=== PATIENT | female | born 1965 | race Caucasian/White ===

== ENCOUNTER 2021-09-15 18:50 | Inpatient (IN) | payer OTHER ==
[2021-09-15] MEDS ORDERED: Acetaminophen 325 MG TAB PO PRN (20:07)
[2021-09-15] MEDS ORDERED: Acetaminophen 650 MG Suppository PR PRN (20:07)
[2021-09-15] MEDS ORDERED: HYDROcodone/Acetaminophen 5/325 mg Tablet PO PRN ×2 (20:09)
[2021-09-15 20:10] VITALS: BMI 37.5
[2021-09-15] MEDS ORDERED: Calcium Carbonate 500 MG ChewTAB PO PRN (20:10)
[2021-09-15] MEDS ORDERED: Ondansetron ODT 4 MG TAB PO PRN ×2 (20:10→21:37)
[2021-09-15] MEDS ORDERED: Bisacodyl 10 MG SUPP PR PRN (21:33)
[2021-09-15] MEDS ORDERED: Cyclobenzaprine 10 MG TAB PO PRN (21:37)
[2021-09-15] MEDS ORDERED: Enoxaparin Sodium 40 MG/0.4 ML SYRINGE SC SCH (22:00)
[2021-09-15] MEDS ORDERED: Gabapentin 100 MG CAP PO SCH (22:30)
[2021-09-15] MEDS ORDERED: Famotidine 20 MG TAB PO SCH (22:30)
[2021-09-15] MEDS: traMADol HCl 50 MG TAB PO SCH (23:27)
[2021-09-15] MEDS: Acetaminophen 500 MG TAB PO SCH (23:27)
[2021-09-16] MEDS: Acetaminophen 500 MG TAB PO SCH ×4 (05:54→23:58)
[2021-09-16] MEDS: traMADol HCl 50 MG TAB PO SCH ×4 (05:55→23:59)
[2021-09-16] MEDS: Enoxaparin Sodium 40 MG/0.4 ML SYRINGE SC SCH (09:50)
[2021-09-16] MEDS: Famotidine 20 MG TAB PO SCH ×2 (09:50→21:16)
[2021-09-16] MEDS: Gabapentin 100 MG CAP PO SCH ×3 (09:52→21:17)
[2021-09-17] MEDS: Acetaminophen 500 MG TAB PO SCH ×3 (05:47→17:17)
[2021-09-17] MEDS: traMADol HCl 50 MG TAB PO SCH ×3 (05:48→17:18)
[2021-09-17] MEDS: Famotidine 20 MG TAB PO SCH ×2 (09:08→21:16)
[2021-09-17] MEDS: Gabapentin 100 MG CAP PO SCH ×3 (09:09→21:16)
[2021-09-17] MEDS: Enoxaparin Sodium 40 MG/0.4 ML SYRINGE SC SCH (09:09)
[2021-09-18] MEDS: Acetaminophen 500 MG TAB PO SCH ×5 (00:23→23:40)
[2021-09-18] MEDS: traMADol HCl 50 MG TAB PO SCH ×5 (00:23→23:41)
[2021-09-18] MEDS: Famotidine 20 MG TAB PO SCH ×2 (08:17→21:17)
[2021-09-18] MEDS: Enoxaparin Sodium 40 MG/0.4 ML SYRINGE SC SCH (08:17)
[2021-09-18] MEDS: Gabapentin 100 MG CAP PO SCH ×3 (08:17→21:17)
[2021-09-18] MEDS: Bisacodyl 5 MG TAB PO PRN (08:18)
[2021-09-18] MEDS: Senokot S 8.6-50 MG TAB PO PRN (21:17)
[2021-09-19] MEDS: Acetaminophen 500 MG TAB PO SCH ×3 (05:47→17:44)
[2021-09-19] MEDS: traMADol HCl 50 MG TAB PO SCH ×3 (05:48→17:42)
[2021-09-19] MEDS: Famotidine 20 MG TAB PO SCH ×2 (09:24→21:49)
[2021-09-19] MEDS: Gabapentin 100 MG CAP PO SCH ×3 (09:24→21:49)
[2021-09-19] MEDS: Enoxaparin Sodium 40 MG/0.4 ML SYRINGE SC SCH (09:24)
[2021-09-19] MEDS: Bisacodyl 5 MG TAB PO PRN (09:25)
[2021-09-19] MEDS: Senokot S 8.6-50 MG TAB PO PRN (21:54)
[2021-09-20] MEDS: Acetaminophen 500 MG TAB PO SCH ×4 (00:10→17:25)
[2021-09-20] MEDS: traMADol HCl 50 MG TAB PO SCH ×4 (00:11→17:24)
[2021-09-20] MEDS: Enoxaparin Sodium 40 MG/0.4 ML SYRINGE SC SCH (08:54)
[2021-09-20] MEDS: Gabapentin 100 MG CAP PO SCH ×3 (08:54→21:50)
[2021-09-20] MEDS: Bisacodyl 5 MG TAB PO PRN (08:55)
[2021-09-20] MEDS: Famotidine 20 MG TAB PO SCH ×2 (08:56→21:50)
[2021-09-20] MEDS: Polyethylene Glycol 3350 17 GM Packet PO SCH (08:57)
[2021-09-20] MEDS ORDERED: Triple Antibiotic Oint 1 GM Packet TOP SCH (11:45)
[2021-09-20] MEDS: Triple Antibiotic Oint 1 GM Packet TOP SCH (21:52)
[2021-09-21] MEDS: Senokot S 8.6-50 MG TAB PO PRN ×2 (00:21→21:50)
[2021-09-21] MEDS: traMADol HCl 50 MG TAB PO SCH ×4 (00:22→17:37)
[2021-09-21] MEDS: Acetaminophen 500 MG TAB PO SCH ×4 (00:22→17:36)
[2021-09-21] MEDS: Famotidine 20 MG TAB PO SCH ×2 (10:11→21:39)
[2021-09-21] MEDS: Gabapentin 100 MG CAP PO SCH ×3 (10:11→21:39)
[2021-09-21] MEDS: Bisacodyl 5 MG TAB PO PRN (10:11)
[2021-09-21] MEDS: Triple Antibiotic Oint 1 GM Packet TOP SCH ×2 (10:12→21:41)
[2021-09-21] MEDS: Polyethylene Glycol 3350 17 GM Packet PO SCH (10:12)
[2021-09-21] MEDS: Enoxaparin Sodium 40 MG/0.4 ML SYRINGE SC SCH (10:12)
[2021-09-22] MEDS: Acetaminophen 500 MG TAB PO SCH ×5 (00:11→23:24)
[2021-09-22] MEDS: traMADol HCl 50 MG TAB PO SCH ×5 (00:12→23:24)
[2021-09-22] MEDS: Gabapentin 100 MG CAP PO SCH ×3 (08:22→22:43)
[2021-09-22] MEDS: Famotidine 20 MG TAB PO SCH ×2 (08:22→22:43)
[2021-09-22] MEDS: Enoxaparin Sodium 40 MG/0.4 ML SYRINGE SC SCH (08:23)
[2021-09-22] MEDS: Triple Antibiotic Oint 1 GM Packet TOP SCH ×2 (08:24→22:45)
[2021-09-22] MEDS: Polyethylene Glycol 3350 17 GM Packet PO SCH (09:37)
[2021-09-22] MEDS: Senokot S 8.6-50 MG TAB PO PRN (22:43)
[2021-09-23] MEDS: Acetaminophen 500 MG TAB PO SCH ×4 (05:55→23:26)
[2021-09-23] MEDS: traMADol HCl 50 MG TAB PO SCH ×4 (05:56→23:26)
[2021-09-23] MEDS: Bisacodyl 5 MG TAB PO PRN (08:29)
[2021-09-23] MEDS: Triple Antibiotic Oint 1 GM Packet TOP SCH ×2 (08:29→21:01)
[2021-09-23] MEDS: Famotidine 20 MG TAB PO SCH ×2 (08:29→20:59)
[2021-09-23] MEDS: Polyethylene Glycol 3350 17 GM Packet PO SCH (08:29)
[2021-09-23] MEDS: Gabapentin 100 MG CAP PO SCH ×3 (08:30→21:00)
[2021-09-23] MEDS: Enoxaparin Sodium 40 MG/0.4 ML SYRINGE SC SCH (08:30)
[2021-09-23 23:14] LABS: SARS-CoV-2 PCR by NAA Not Detected (NotDetected)
[2021-09-24] MEDS: Acetaminophen 500 MG TAB PO SCH ×4 (06:18→23:57)
[2021-09-24] MEDS: traMADol HCl 50 MG TAB PO SCH ×4 (06:19→23:58)
[2021-09-24] MEDS: Enoxaparin Sodium 40 MG/0.4 ML SYRINGE SC SCH (08:42)
[2021-09-24] MEDS: Triple Antibiotic Oint 1 GM Packet TOP SCH ×2 (08:43→20:20)
[2021-09-24] MEDS: Polyethylene Glycol 3350 17 GM Packet PO SCH (08:43)
[2021-09-24] MEDS: Famotidine 20 MG TAB PO SCH ×2 (08:43→20:21)
[2021-09-24] MEDS: Gabapentin 100 MG CAP PO SCH ×2 (08:44→19:05)
[2021-09-24] MEDS: Bisacodyl 5 MG TAB PO PRN (09:07)
[2021-09-24] MEDS ORDERED: Calcium Carbonate 500 MG ChewTAB PO PRN (15:14)
[2021-09-25] MEDS: Acetaminophen 500 MG TAB PO SCH ×4 (05:51→23:56)
[2021-09-25] MEDS: traMADol HCl 50 MG TAB PO SCH ×4 (05:52→23:58)
[2021-09-25] MEDS: Polyethylene Glycol 3350 17 GM Packet PO SCH (08:41)
[2021-09-25] MEDS: Cholecalciferol 1,000 UNITS (25 MCG) TAB PO SCH (08:41)
[2021-09-25] MEDS: Triple Antibiotic Oint 1 GM Packet TOP SCH ×2 (08:41→20:59)
[2021-09-25] MEDS: Famotidine 20 MG TAB PO SCH ×2 (08:41→20:59)
[2021-09-25] MEDS: Enoxaparin Sodium 40 MG/0.4 ML SYRINGE SC SCH (08:41)
[2021-09-26] MEDS: traMADol HCl 50 MG TAB PO SCH ×3 (05:24→19:34)
[2021-09-26] MEDS: Acetaminophen 500 MG TAB PO SCH ×3 (05:25→19:34)
[2021-09-26] MEDS: Polyethylene Glycol 3350 17 GM Packet PO SCH (09:10)
[2021-09-26] MEDS: Cholecalciferol 1,000 UNITS (25 MCG) TAB PO SCH (09:11)
[2021-09-26] MEDS: Famotidine 20 MG TAB PO SCH ×2 (09:11→20:28)
[2021-09-26] MEDS: Triple Antibiotic Oint 1 GM Packet TOP SCH ×2 (09:11→20:28)
[2021-09-26] MEDS: Enoxaparin Sodium 40 MG/0.4 ML SYRINGE SC SCH (09:11)
[2021-09-26] MEDS: Ibuprofen 200 MG TAB PO PRN (09:28)
[2021-09-27] MEDS: traMADol HCl 50 MG TAB PO SCH ×4 (00:10→17:25)
[2021-09-27] MEDS: Acetaminophen 500 MG TAB PO SCH ×4 (00:10→17:24)
[2021-09-27] MEDS: Enoxaparin Sodium 40 MG/0.4 ML SYRINGE SC SCH (08:49)
[2021-09-27] MEDS: Famotidine 20 MG TAB PO SCH ×2 (08:50→21:18)
[2021-09-27] MEDS: Cholecalciferol 1,000 UNITS (25 MCG) TAB PO SCH (08:50)
[2021-09-27] MEDS: Polyethylene Glycol 3350 17 GM Packet PO SCH (08:50)
[2021-09-27] MEDS: Triple Antibiotic Oint 1 GM Packet TOP SCH ×2 (08:50→21:18)
[2021-09-27] MEDS: Ibuprofen 200 MG TAB PO PRN ×3 (08:51→22:41)
[2021-09-28] MEDS: Acetaminophen 500 MG TAB PO SCH ×4 (00:56→17:44)
[2021-09-28] MEDS: traMADol HCl 50 MG TAB PO SCH ×4 (00:57→17:44)
[2021-09-28] MEDS: Famotidine 20 MG TAB PO SCH ×2 (08:32→21:54)
[2021-09-28] MEDS: Ibuprofen 200 MG TAB PO PRN ×2 (08:32→21:54)
[2021-09-28] MEDS: Triple Antibiotic Oint 1 GM Packet TOP SCH ×2 (08:33→21:55)
[2021-09-28] MEDS: Cholecalciferol 1,000 UNITS (25 MCG) TAB PO SCH (08:33)
[2021-09-28] MEDS: Polyethylene Glycol 3350 17 GM Packet PO SCH (08:33)
[2021-09-28] MEDS: Enoxaparin Sodium 40 MG/0.4 ML SYRINGE SC SCH (08:33)
[2021-09-29] MEDS: Acetaminophen 500 MG TAB PO SCH ×4 (00:09→19:23)
[2021-09-29] MEDS: traMADol HCl 50 MG TAB PO SCH ×4 (00:09→19:24)
[2021-09-29 05:33] LABS: Hemoglobin 10.6 g/dL (12.0-16.0); Platelet Count 407 thou/uL (130-400)
[2021-09-29] MEDS: Famotidine 20 MG TAB PO SCH ×2 (10:03→20:14)
[2021-09-29] MEDS: Enoxaparin Sodium 40 MG/0.4 ML SYRINGE SC SCH (10:03)
[2021-09-29] MEDS: Cholecalciferol 1,000 UNITS (25 MCG) TAB PO SCH (10:04)
[2021-09-29] MEDS: Polyethylene Glycol 3350 17 GM Packet PO SCH (10:04)
[2021-09-29] MEDS: Triple Antibiotic Oint 1 GM Packet TOP SCH ×2 (10:04→20:14)
[2021-09-30] MEDS: Acetaminophen 500 MG TAB PO SCH ×3 (00:57→11:49)
[2021-09-30] MEDS: traMADol HCl 50 MG TAB PO SCH ×3 (00:58→11:50)
[2021-09-30 05:01] VITALS: BP 125/75; TEMP 98.9
[2021-09-30] MEDS: Enoxaparin Sodium 40 MG/0.4 ML SYRINGE SC SCH (08:28)
[2021-09-30] MEDS: Famotidine 20 MG TAB PO SCH (08:29)
[2021-09-30] MEDS: Triple Antibiotic Oint 1 GM Packet TOP SCH (08:29)
[2021-09-30] MEDS: Cholecalciferol 1,000 UNITS (25 MCG) TAB PO SCH (08:29)
[2021-09-30] MEDS: Polyethylene Glycol 3350 17 GM Packet PO SCH (08:30)
== END 2021-09-30 14:55 | disposition home or self-care (01) | DRG 561 ==
LOC: BURMED 18:50
PROVIDERS: ADMIT Family Medicine; ATTEND Family Medicine
DX: S72.141D Displaced intertrochanteric fracture of right femur, subsequent encounter for closed fracture with routine healing (principal); Z20.822 Contact with and (suspected) exposure to COVID-19; V89.2XXD Person injured in unspecified motor-vehicle accident, traffic, subsequent encounter
CPT/HCPCS: 36415; 82565; 85014; 85018; 85049; J1650; U0003; U0005